=== PATIENT | male | born 1965 | race Caucasian/White ===

== ENCOUNTER 2022-06-01 22:21 | Emergency (ER) | payer BC, SELFPAY ==
[2022-06-01 22:22] VITALS: BP 99/62; PULSE 63; RESP 15; TEMP 35.8; O2SAT 98; BMI 28.1
--- NOTE | 2022-06-02 00:04 | EDS_ITS ---
HPI History of Present Illness Chief Complaint: Nausea/Vomiting/Diarrhea Narrative Narrative: Patient presents with nausea vomiting and diarrhea that started about 2 hours ago, he also has abdominal cramping. No fevers or chills. He has diffuse abdominal cramping no specific point. PFSH PFS Home Medications furosemide 20 mg tablet 20 mg PO BID 06/01/22 [History Last Taken Unknown] glimepiride 2 mg tablet 2 mg PO DAILY 06/01/22 [History Last Taken Unknown] levothyroxine 150 mcg tablet 150 mcg PO DAILY 06/01/22 [History Last Taken Unknown] nadolol 40 mg tablet 40 mg PO DAILY 06/01/22 [History Last Taken Unknown] polysaccharide iron complex 150 mg iron capsule (Ferrex) 150 mg PO DAILY 06/01/22 [History Last Taken Unknown] spironolactone 50 mg tablet 50 mg PO DAILY 06/01/22 [History Last Taken Unknown] dicyclomine 20 mg tablet 20 mg PO TID #7 tabs 06/02/22 [Rx Last Taken Unknown] ondansetron 4 mg disintegrating tablet 4 mg PO Q8H #10 tabs 06/02/22 [Rx Last Taken Unknown] Allergy/AdvReac Type Severity Reaction Status Date / Time No Known Allergies Allergy Verified 06/01/22 22:22 Social History Smoking Status: Never smoker ROS ROS ED ROS Narrative Past medical history: Reviewed Medications: Reviewed Social history: Noncontributory Review of systems: All systems negative except as indicated General: No fever Eyes: No visual changes ENT: No upper airway congestion, normal voice Neck: No neck pain Cardiovascular: No chest pain Respiratory: No shortness of breath or cough Gastrointestinal: As in HPI Genitourinary: No dysuria Musculoskeletal: Denies myalgias no difficulty with ambulation Skin: No rash Neurological: No memory loss, confusion or any focal weakness Psych: No recent behavioral changes Hematologic: No easy bleeding or easy bruising EXAM Physical Exam Narrative Exam Narrative: Physical exam General: Patient appears somewhat uncomfortable Head: Normocephalic, Atraumatic Eyes: Conjunctiva not pale ENT: Moist mucous membranes Neck: Supple, Nontender, No lymphadenopathy Cardiovascular: Regular rate, Regular rhythm Respiratory: No distress, CTA bilaterally Abdomen: Soft, slight tenderness throughout the abdomen quite benign abdominal exam no tenderness at McBurney's, negative Barragan's. Back: Nontender, Normal Inspection. Negative for: CVA tenderness Extremities: Nontender, No edema Skin: Normal color, No rash Neurological: Alert, Normal Strength, Normal Sensation Psychological: Normal affect Const Vital Signs: 06/01/22 22:22 Temperature 96.4 F L Temperature Source Temporal Pulse Rate 63 Respiratory Rate 15 Blood Pressure 99/62 Blood Pressure Mean 74 Pulse Ox 98 Oxygen Delivery Method Room Air [facility] Lab Data Labs: Laboratory Results - last 24 hr 06/02/22 06/02/22 00:15 00:15 WBC 12.4 H RBC 4.10 L Hgb 12.6 L Hct 36.5 L MCV 89.0 MCH 30.7 MCHC 34.5 RDW Std Deviation 44.8 H RDW Coeff of Jenna 13.8 Plt Count 132 L MPV 10.3 Immature Gran % (Auto) 0.300 Neut % (Auto) 88.4 H Lymph % (Auto) 3.6 L Boyle % (Auto) 6.8 Eos % (Auto) 0.6 Baso % (Auto) 0.3 Absolute Neuts (auto) 11.0 H Absolute Lymphs (auto) 0.45 L Nucleated RBC % 0 Platelet Estimate SLT DEC Sodium 136 Potassium 4.3 Chloride 106 Carbon Dioxide 22.0 Anion Gap 8 BUN 15 Creatinine 1.08 Estim Creat Clear Calc 70.55 Est GFR (MDRD) Af Amer 91 Est GFR (MDRD) Non-Af 75 BUN/Creatinine Ratio 13.9 Glucose 254 H Calcium 9.1 Total Bilirubin 1.40 H AST 62 H ALT 39 Alkaline Phosphatase 214 H Total Protein 7.7 Albumin 3.0 L Globulin 4.7 H Albumin/Globulin Ratio 0.6 L Radiography Diagnostic Testing: Patient symptoms improved after IV fluids antiemetics and Bentyl. He likely has viral GI etiology for his symptoms. He has chronic liver disease but his LFTs are relatively unremarkable in the emergency department. He can follow-up with his PCP for this. Otherwise he has a normal exam and has improvement I do not believe imaging is needed at this time he does not have abdominal pain. Discharge Plan Triage Chief Complaint: Nausea/Vomiting/Diarrhea ED Provider: Julio Contreras Dx/Rx/DC Orders Clinical Impression: Nausea & vomiting, Diarrhea Instructions: ED Diet Vomiting Diarrhea Prescriptions: New ondansetron 4 mg tablet,disintegrating 4 mg PO Q8H Qty: 10 0RF dicyclomine 20 mg tablet 20 mg PO TID Qty: 7 0RF No Action polysaccharide iron complex [Ferrex 150] 150 mg iron capsule 150 mg PO DAILY Label Comments: TAKE ONE CAPSULE BY MOUTH TWICE A DAY AFTER MEALS glimepiride 2 mg tablet 2 mg PO DAILY Label Comments: TAKE 1 TABLET BY MOUTH EVERY DAY levothyroxine 150 mcg tablet 150 mcg PO DAILY Label Comments: TAKE 1 TABLET BY MOUTH EVERY DAY nadolol 40 mg tablet 40 mg PO DAILY Label Comments: TAKE 1 TABLET BY MOUTH EVERY DAY furosemide 20 mg tablet 20 mg PO BID Label Comments: TAKE 1 TABLET BY MOUTH EVERY DAY spironolactone 50 mg tablet 50 mg PO DAILY Primary Care Provider: CATY SCHNEIDER Referrals: CATY SCHNEIDER [Other] - 2 Days Disposition Disposition: Home, Self Care
[2022-06-02] MEDS: 0.9% Normal Saline 1,000 ML 1000 ML IV (00:22)
[2022-06-02] MEDS: Ondansetron 4 MG/2 ML Vial IV (00:23)
[2022-06-02 00:32] LABS: Absolute Lymphocyte Count 0.45 X10^3/uL (0.83-4.51); Basophil# 0.04 X10^3/uL; Basophil% 0.3 % (0-1); Eosinophil# 0.07 X10^3/uL; Eosinophils% 0.6 % (0-5); Hematocrit 36.5 % (40-54); Hemoglobin 12.6 g/dL (13.0-16.5); Lymphocyte # 0.45 X10^3/ul (0.83-4.51); Lymphocyte % 3.6 % (19-41); Mean Corp Hgb Conc 34.5 g/dL (32-36); Mean Corpuscular Hgb 30.7 pg (27.0-32.0); Mean Platelet Vol. 10.3 fl (6.2-12.0); Monocyte# 0.84 X10^3/uL; Monocyte% 6.8 % (0-10); NRBC Flagged by Analyzer 0 % (0-5); Neutrophil # 10.96 X10^3/uL (2.7-7.7); Neutrophil % 88.4 % (47-70); POSITIVE DIFFERENTIAL YES; Platelet Count 132 K/mm3 (150-450); RBC Distribution Width CV 13.8 % (11.6-14.6); RBC Distribution Width SD 44.8 fl (35.1-43.9); White Blood Count 12.4 K/mm3 (4.4-11.0)
[2022-06-02 00:36] LABS: Differential Indicated SCAN CRITERIA MET
[2022-06-02 00:43] LABS: Platelet Estimate SLT DEC (ADEQ)
[2022-06-02 00:53] LABS: ALB/GLOB Ratio 0.6 RATIO (0.9-2.4); AST(SGOT) 62 U/L (15-37); Alanine Aminotransfer ALT/SGPT 39 U/L (16-61); Alkaline Phosphatase 214 U/L (45-117); Anion Gap 8 (5-15); BUN 15 mg/dL (7-18); BUN/Creat Ratio 13.9 RATIO (10-20); Calcium,Total 9.1 mg/dL (8.5-10.1); Chloride 106 mmol/L (98-107); Creatinine, Serum 1.08 mg/dL (0.70-1.30); EST Glomerular Filtration Rate 75 mL/min (>60); Est Glom Filt Rate - Afr Amer 91 mL/min (>60); Estimated Creatinine Clearance 70.55 ml/min; Globulin 4.7 g/dL (2.2-4.2); Glucose 254 mg/dL (74-106); Potassium 4.3 mmol/L (3.5-5.1); Protein, Total 7.7 g/dL (6.4-8.2); Sodium Level 136 mmol/L (136-145)
[2022-06-02] MEDS: Dicyclomine 20 MG/2 ML Vial IM (01:02)
[2022-06-02 01:39] VITALS: BP 101/74; PULSE 71; RESP 17; O2SAT 94
== END 2022-06-02 01:39 | disposition home or self-care (01) ==
PROVIDERS: Emergency Provider Emergency Medicine; Visit Provider Emergency Medicine
DX: R11.2 Nausea with vomiting, unspecified (principal); R19.7 Diarrhea, unspecified
CPT/HCPCS: 80053; 85025; 96361; 96372; 96374; 99283; J7030; J2405